=== PATIENT | female | born 1960 | race Caucasian/White ===

== ENCOUNTER → 2023-12-30 07:34 | Outpatient (REF) | payer BC, SELFPAY | LOC: HWRAD 07:34 | PROVIDERS: ATTENDING PHYSICIAN Internal Medicine Critical Care Medicine; FAMILY PHYSICIAN Nurse Practitioner | DX: R91.1 Solitary pulmonary nodule (principal) | CPT/HCPCS: 71250 ==

== ENCOUNTER → 2024-12-23 08:04 | Outpatient (REF) | payer BC, SELFPAY | LOC: HWRAD 08:04 | PROVIDERS: ATTENDING PHYSICIAN Internal Medicine Critical Care Medicine | DX: C34.91 Malignant neoplasm of unspecified part of right bronchus or lung (principal) | CPT/HCPCS: 71250 ==

== ENCOUNTER 2024-12-23 17:04 | Observation (INO) | payer BC, SELFPAY ==
[2024-12-23] VITALS (15 sets, daily range): BP systolic 76–104; BP diastolic 51–79; PULSE 74–76; BMI 28.4; BMI 27.7
[2024-12-23 12:03] LABS: Hematocrit 34.5 % (37.0-47.0); Hemoglobin 12.4 g/dL (12.0-16.0); Mean Corp Hgb Conc. 35.9 g/dL (33.0-37.0); Mean Corpuscular Hgb 30.8 pg (27.0-31.0); Mean Corpuscular Volume 85.8 fL (81.0-99.0); Mean Platelet Volume 10.5 fL (7.4-10.4); Platelet Count 203 10^3/uL (130-400); Red Blood Cell Count 4.02 10^6/uL (4.20-5.40); Red Cell Dist. Width 12.3 % (11.5-14.5); White Blood Cell Count 6.4 10^3/uL (4.8-10.8)
--- NOTE | 2024-12-23 12:06 | ED.GENMED ---
History of Present Illness
General
Chief Complaint: Blood Pressure Problem
Time Seen by Provider: 12/23/24 11:33
History of Present Illness
History of Present Illness:
64-year-old female history of hypertension presenting with dizziness, lethargy for the past 3 weeks. Patient states that she had a left upper tooth infection and had her tooth removed on Thursday 12/21. Patient states that she has been on clindamycin
ever since. Patient states that she is continue to feel pain in that area which has not improved. Patient states that she was feeling so unwell with dizziness that she saw her primary care doctor today and was noted to be hypotensive to 78/50
prompting ED arrival. Patient states that she has a history of hypertension, is on losartan and bisoprolol-HCTZ which she has been compliant with. Patient states that she is on Zepbound is lost 30 pounds since starting in August. Patient denies
chest pain, fever, shortness of breath, cough, abdominal pain or urinary symptoms. Patient notes that she is on clindamycin and noticed an erythematous pruritic rash on her back started few days ago.
Past History
Past History
ED Past Medical History: HTN and Hypothyroidism
ED Past Surgical History: Other (Thyroidectomy)
Social History
Tobacco: Non-smoker
Alcohol: Occasional
Drug: None
Personal:
Living: with family
Employment: Employed
Phy Exam
Physical Exam
Physical Exam:
General: Alert, no acute distress
Head: NCAT
ENT: no ginginval erythema or swelling to left upper gums where tooth removed. no fluctuance or induration
Eyes: clear conjunctiva
Neck: supple
Cardiac: regular rate and rhythm, no murmur
Lungs: clear to auscultation bilaterally. No wheezes, rales, or rhonchi. Speaking full unlabored sentences. No respiratory distress.
Abdomen: soft, nondistended nontender. No rebound or guarding.
MSK: no lower extremity edema bilaterally. No deformity
Skin: warm, dry. Erythematous blanching faint macular rash to mid and low back. No vesicles
Neuro: Alert and oriented x3. no focal deficits
Course
Orders/Labs/Results
Orders:
Orders
12/23/24 Breakfast
Regular
At Your Request: Full Participation
Does patient need a safe tray?: No
Fluid Restriction: 1200 mL/day (40 oz)
12/23/24 11:41
CBC/With Diff [Complete Blood Count/With Diff] Urgent
CMP [Comprehensive Metabolic Panel] Urgent
12/23/24 12:04
CT Facial Bones W/ Iv Contrast Urgent
Comment:
Reason For Exam: r/o abscess left upper molar
CXR2 [CR Chest - 2 Views ] Urgent
Comment:
Reason For Exam: r/o infection
12/23/24 12:05
0.9% Sodium Chloride 1000 ml [Nss] 1,000 ml IV BOLUS
12/23/24 12:11
Lactic Acid Urgent
Blood Culture Q30M
DONNIE Source: Blood/Venous
Specimen Description:
Blood Culture Q30M
DONNIE Source: Blood/Venous
Specimen Description:
12/23/24 14:23
US Abdomen Complete/Upper Urgent
Comment:
Reason For Exam: elevated LFTs, hypotension
12/23/24 14:31
0.9% Sodium Chloride 1000 ml [Nss] 1,000 ml IV BOLUS
12/23/24 16:48
Admit/Transfer Patient As Directed
Co-Sign Provider:
Level of Care: Observation services
Assign to:: Telemetry
Physician / Group: coleen
Diagnosis: hypontension
Reason for Telemetry: Other
Other Reason for Telemetry: hypotension
Date to Stop Telemetry: 12/25/24
Time to Stop Telemetry: 11:00
PRN Pain Medication Management As Directed
May give lesser potent ordered pain med per pt: Yes
preference::
Protocol:: Medication orders for pain may be administered in a
manner that supports deferring to patient preference
when the pt is:
- Requesting an ordered lesser potent pain medication.
Least to most potent pain medications are defined
as: acetaminophen < NSAID < tramadol < opioids
(morphine, oxycodone, hydromorphone).
- Requesting a lesser dose of the same medication IF
ORDERED.
- Requesting a less intrusive route of administration
if both routes are prescribed by the provider (PO <
IV).
12/23/24 16:51
Code Status As Directed
Resuscitation Status: Full Code
12/23/24 20:05
UA Reflex to Culture [Urinalysis Reflex To Culture] Urgent
Date Specimen was Collected: 12/23/24
Time Specimen was Collected: 12:20
Urine Osmolality Random [Osmolality, Random Urine] Routine
Date Specimen was Collected: 12/23/24
Time Specimen was Collected: 18:35
Urine Sodium Routine
Date Specimen was Collected: 12/23/24
Time Specimen was Collected: 18:35
12/23/24 20:17
Acetaminophen [Tylenol] 650 mg PO Q4HPRN PRN
Bisacodyl [Dulcolax] 10 mg RECTAL [id number] PRN
Docusate W/Senna [Senokot-S] 1 tablet PO BIDPRN PRN
Enoxaparin Sodium [Lovenox] 40 mg SC QPM
Polyethylene Glycol Powder [Miralax] 17 grams PO DAILYPRN PRN
12/23/24 20:17
Activity As Directed
Activity Level: As Tolerated
Orthostatic Vital Signs As Directed
Orthostatic VS Frequency: Daily
Vital Signs As Directed
Frequency: Per unit guidelines
Pt Eval And Treat Routine
Activity Level: As Tolerated
DX Deep Vein Thrombosis Video Routine
12/23/24 20:25
Budesonide [Pulmicort] 0.25 mg INH R BIDPRN PRN SHORTNESS OF BREATH
12/23/24 20:26
Albuterol Nebs [Ventolin Nebules] 2.5 mg INH R Q6HPRN PRN
12/23/24 22:00
Clindamycin HCl [Cleocin] 150 mg PO QID
12/24/24 06:00
Levothyroxine [Synthroid] 100 mcg PO DAILY @ 0600
12/25/24 11:00
DC Protocol for Telemetry ONCE
Abnormal Lab Results
12/23/24
11:41
RBC 4.02 L 10^6/uL
(4.20-5.40)
Hct 34.5 L %
(37.0-47.0)
MPV 10.5 H fL
(7.4-10.4)
Immature Gran % 0.6 H %
(0-0.5)
Sodium 126 L mmol/L
(135-145)
Chloride 94 L mmol/L
(98-107)
BUN 27 H mg/dl
(7-17)
Glucose 104 H mg/dl
(70-99)
Calcium 8.3 L mg/dl
(8.4-10.2)
AST 42 H U/L
(14-36)
ALT 70 H U/L
(0-35)
Alkaline Phosphatase 206 H U/L
(38-126)
12/23/24 11:41
12/23/24 11:41
Vital Signs
Initial and Last Documented VS:
Initial Vital Signs
Temp Pulse Resp BP Pulse Ox
98.1 F 67 16 94/56 99
12/23/24 10:28 12/23/24 10:28 12/23/24 10:28 12/23/24 10:28 12/23/24 10:28
Last Documented Vital Signs
Temp Pulse Resp BP Pulse Ox
99.0 F 78 16 99/65 97
12/24/24 14:30 12/24/24 14:30 12/24/24 14:30 12/24/24 14:30 12/24/24 14:30
MDM/Problems Addressed
Differential Diagnosis Includes:
Dental abscess, UTI, pneumonia, LENCHO, electrolyte abnormality
MDM/Problems Addressed:
Results reviewed. Significant for hyponatremia to 126. WBC, hemoglobin within normal limits. Elevated LFTs. UA negative for UTI. Chest x-ray clear with no focal filtrate or consolidation. CT facial bones show No suspicious periapical lucencies.
Ordered abdominal ultrasound due to elevated LFTs. Ultrasound shows Increased echogenicity in the liver, compatible with underlying hepatocellular disease, which most commonly relates to fatty infiltration of the liver. Otherwise no
gallbladder/CBD findings.
On reevaluation, blood pressure only improved to 94/56 despite 2 L of fluids. ?hypotension secondary to not needing as many antihypertensives with lifestyle changes/recent weight loss. Discussed with hospitalist for admission
*Critical Care Note
Total Time (30-74mins, 75-104mins- exclusive of procedures): Not Applicable
ED Attending Note
-
Portions of this chart may have been created with voice recognition software.� Occasional wrong word or��sound alike� substitutions may have occurred due to the inherent limitations of voice recognition software.
Discharge Plan
Departure
Patient Disposition: Admit
Date of Disposition: 12/23/24
Time of Disposition: 16:11
Presentation/result/management discussed w/ accepting MD/DO: Hospitalist
Discharge Problem:
Acute hyponatremia, Hypotension
Interventions
Interventions:
*Risk Screen - Suicide Last Done: 12/23/24 10:28
*Neglect/Abuse Screening Last Done: 12/23/24 10:28
*ED COVID-19 Vaccine History Last Done: 12/23/24 18:36
*Nursing Disposition Last Done: 12/23/24 20:09
ED- Cardiac Assessment Last Done: 12/23/24 11:37
ED- Neurological Assessment Last Done: 12/23/24 11:37
ED- Pulmonary Assessment Last Done: 12/23/24 11:37
Discharge Date and Time
Discharge Date/Time: 12/23/24 20:09
[2024-12-23 12:10] LABS: ALT (SGPT) 70 U/L (0-35); AST (SGOT) 42 U/L (14-36); Albumin 3.6 g/dl (3.5-5.0); Alkaline Phosphatase 206 U/L (38-126); Blood Urea Nitrogen 27 mg/dl (7-17); Calcium 8.3 mg/dl (8.4-10.2); Carbon Dioxide 24 mmol/L (22-30); Chloride 94 mmol/L (98-107); Estimated Creatinine Clearance 59 ml/min; Glucose 104 mg/dl (70-99); Potassium 3.7 mmol/L (3.5-5.1); Sodium 126 mmol/L (135-145); Total Bilirubin 0.9 mg/dl (0.2-1.3); Total Protein 6.5 g/dl (6.3-8.2); eGFR > 60.00
[2024-12-23] MEDS: NSS 1000 IV ×2 (12:17→15:28)
[2024-12-23 12:56] LABS: % Basophils 1.1 % (0-2); % Immature Granulocytes 0.6 % (0-0.5); % Lymphocytes 38.3 % (20.5-51.1); % Monocytes 8.5 % (1.7-9.3); % Neutrophils 48.5 % (42.2-75.2); Absolute Basophils 0.1 10^3/uL (0-0.2); Absolute Eosinophils 0.2 10^3/uL (0-0.7); Absolute Lymphocytes 2.5 10^3/uL (1.2-3.4); Absolute Monocytes 0.5 10^3/uL (0.1-0.6); Absolute Neutrophils 3.1 10^3/uL (1.4-6.5); Nucleated Red Blood Cells % 0 %
--- NOTE | 2024-12-23 16:20 | HPS.HSE ---
Family Physician
-
Family Physician: GENEVIEVE Page
Chief Complaint
-
Dizziness
History of Present Illness
64-year-old female history of hypertension, lung cancer, hypothyroidism presenting with dizziness, lethargy for the past 3 weeks. Patient was complaining of frontal headache. Patient stopped taking zepbound 10 days ago thinking headache was a side
effect of zepbound. Patient is on Zepbound since August and she had lost 30lbs along with dietary modification.Patient states that she had a left upper tooth infection and had her tooth was removed on Thursday 12/21. she is on clindamycin since
then. she was having fever on Friday and Friday which resolved since the tooth was remove and on clindamycin. Patient stated more weak and dizzy this week. Denied congestion or cough. Patient denied any chest pain or shortness of breath.
Patient denied any abdominal pain, nausea, vomiting or diarrhea. Patient denied dysuria hematuria. Patient was evaluated at PCP today. She was noted hypotensive. She was asked to stop losartan and and to be evaluated in the ER.
Patient was noted hypotensive on arrival. Patient received normal saline. Blood pressure improving. Admitted for further management.
Medical History
Past Medical History
Past Medical History: Reports Other
Additional Past Medical History:
Hypertension, hypothyroidism, lung cancer
Past Surgical History: Reports Other
Additional Past Surgical History:
Thyroidectomy
Partial lower lobectomy
Social History
Tobacco: Former Smoker
Alcohol: None
Drug: None
Personal:
Living: With Family
Family History
Family History: Not pertinent
Allergies / Home Medications
Allergies reflects when Allergies were last updated in [facility].
Home Medications with original date entered in [facility]
Allergy/Medication List:
Allergies
Allergy/AdvReac Type Severity Reaction Status Date / Time
Penicillins Allergy Unknown Verified 12/23/24 10:30
Home Medications
aspirin 81 mg chewable tablet 81 mg PO DAILYPRN PRN fatigue, muscle aches 12/23/24
bisoprolol 10 mg-hydrochlorothiazide 6.25 mg tablet 1 tab PO DAILY 12/23/24
budesonide 0.5 mg/2 mL suspension for nebulization 0.25 mg inhalation BIDPRN PRN SHORTNESS OF BREATH 12/23/24
clindamycin HCl 150 mg capsule 150 mg PO QID TOOTH INFECTION 12/23/24
ibuprofen 800 mg tablet 800 mg PO TIDPRN PRN TOOTH PAIN 12/23/24
levalbuterol HCl 1.25 mg/0.5 mL solution for nebulization 1.25 mg inhalation BIDPRN PRN SHORTNESS OF BREATH 12/23/24
levothyroxine 100 mcg tablet (Synthroid) 100 mcg PO DAILY 12/23/24
losartan 100 mg tablet 100 mg PO DAILY 12/23/24
tirzepatide (weight loss) 10 mg/0.5 mL subcutaneous pen injector (Zepbound) 10 mg SC SA@0800 12/23/24
Review of Systems
-
Constitutional: Reports Fatigue
EENT: Reports No Symptoms
Respiratory: Reports No Symptoms
Cardiac: Reports No Symptoms
Abdomen/GI: Reports No Symptoms
: Reports No Symptoms
Musculoskeletal: Reports No Symptoms
Skin: Reports No Symptoms
Neurological: Reports Dizzy
Endocrine: Reports No Symptoms
Hematologic/Lymphatic: Reports No Symptoms
Psych: Reports No Symptoms
Physical Exam
Vital Signs
Vital Signs
Temp Pulse Resp BP Pulse Ox
98.1 F 64 16 96/79 92
12/23/24 10:28 12/23/24 16:00 12/23/24 16:00 12/23/24 16:00 12/23/24 15:30
Physical Exam
General: Well Developed, Well Nourished and No Apparent Distress
HEENT: NormoCephalic, Moist mucous membranes and Atraumatic
Respiratory: Clear
Cardiac: S1/S2 and Regular Rhythm; No Murmur or Rub
GI: Soft, Non Tender, Non Distended and Normal Bowel Sounds; No Organomegaly
Rectal: Deferred by Provider
Musculoskeletal: No Clubbing, No Cyanosis and No Edema
Skin: No Rash
Neuro: AO x 3 and Nonfocal/grossly intact
Psych: Calm
Laboratory Results
-
12/23/24 11:41
12/23/24 11:41
Laboratory Results
Lactic Acid 1.0 mmol/L (0.7-2.0) 12/23/24 12:11
Total Bilirubin 0.9 mg/dl (0.2-1.3) 12/23/24 11:41
AST 42 U/L (14-36) H 12/23/24 11:41
ALT 70 U/L (0-35) H 12/23/24 11:41
Alkaline Phosphatase 206 U/L (38-126) H 12/23/24 11:41
Data Reviewed
-
CT Scan: Report Reviewed by me
Ultrasound: Report Reviewed by me
Lab Data: Labs Reviewed by me
Impression/Plan
-
# Dizziness secondary to hypotension probably secondary to weight loss on zepbound
- Patient received normal saline x 2 L
- Blood cultures and UA ordered in ER
- Chest x-ray with no acute disease
- Hold antihypertensive
- Obtain orthostatics
- PT consulted
# History of tooth infection status post tooth extraction
-On clinda
- CT facial with impression of no suspicious periapical lucencies
# Hyponatremic likely hypovolemic
- Fluids restriction
- Continue to monitor BMP
-urine for sodium and osmolality pending.
# Transaminitis likely from fatty liver
-Ultrasound of the abdomen Increased echogenicity in the liver, compatible with underlying hepatocellular disease, which most commonly relates to fatty infiltration of the liver.
-AST 42, ALT 70, ALK 206
-Patient denied any abdominal pain
-Continue to trend LFTs
# History of lung cancer status post right lower lobectomy in 2020
- Nebs from home continued
# Hypothyroidism
- Levothyroxine continued
# DVT prophylaxis
- Lovenox subcu
# CODE STATUS
- Full code
--- NOTE | 2024-12-23 16:51 | W.PN.UPDATE ---
Update Note
Progress Note Update
This is an addendum to H&P written by SIMONIZER Aurora Victor
I saw and examined the patient.
The SIMONIZER's note was reviewed and I agree with the note.
Comment:
Ms. Marcela Dockery is a 64 yo woman with hx essential HTN, hx lung cancer s/p right lower lobe lobectomy, asthma, recental dental infection s/p tooth extraction, obesity s/p initiation of Zepbound with 30 lb weight loss saw PCP for dizziness sent to ER
as blood pressure was found to be low 78/50. She takes Losartan and Bisoprolol-HCTZ daily for hx HTN.
Triage VS: T 98.1, P 67, RR 16, BP 94/56, SpO2 99%
On exam patient is awake, alert, in no distress. CV: S1, S2, RRR; chest clear; abdomen benign, no LE swelling.
LABS: WBC 6.4, Hg 12.4, PLT 203, Na 126, K+ 3.7, Cl 94, BUN 27, Cr 1.0, Glucose 104, T. Bili 0.9, AST 42, ALT 70, Alk Phos 206, lactate 1.0
CXR
IMPRESSION:
No acute cardiopulmonary process.
Facial Bones CT
IMPRESSION:
1. No suspicious periapical lucencies.
Abdominal US
IMPRESSION:
1. Increased echogenicity in the liver, compatible with underlying hepatocellular disease, which most commonly relates to fatty infiltration of the liver.
Hypotension
-no e/o sepsis/infection; currently on Clinda for prior tooth infection. Etiology of hypotension likely continued use anti-HTN medications in setting of significant weight loss on Zepbound.
-s/p 2L IVF in ER with improvement in BP
-hold B[employer] Bisoprolol-HCTZ and Losartan
-consider resuming beta-antwon based on blood pressures over next couple of days
Hyponatremia
-hold B[employer] HCTZ and stop on DC
-s/p 2L in ER for low blood pressure, will now fluid restrict
-follow up urine studies
Transaminitis
-abdominal US with e/o fatty liver, will trend tomorrow
Remainder of plan as per SIMONIZER note
FULL CODE
[2024-12-23 20:27] LABS: Urine Albumin Negative (Neg - Trace); Urine Bilirubin Negative (Negative); Urine Character Clear (Clear); Urine Color Yellow; Urine Glucose Negative (Negative); Urine Ketone Negative (Negative); Urine Leukocyte Negative (Negative); Urine Nitrite Negative (Negative); Urine Occult Blood Negative (Negative); Urine Urobilinogen Negative (Neg - 1+)
[2024-12-23 20:40] LABS: Osmolality Urine 257 mOsm/kg (300-900)
[2024-12-23 20:46] LABS: Urine Sodium 29 mmol/L (30-90)
[2024-12-23] MEDS: CLEOCIN 150 MG PO (21:19)
[2024-12-23] MEDS: MOTRIN 400 MG PO (21:53)
[2024-12-24] VITALS (8 sets, daily range): BP systolic 72–110; BP diastolic 40–69; PULSE 61–97
[2024-12-24] MEDS: NSS 250 IV (04:05)
--- NOTE | 2024-12-24 04:35 | W.PN.UPDATE ---
Update Note
Progress Note Update
RN reported BP 72/40 HR 70 manually. NSS 500 CC bolus once. Patient seen and evaluated, Ox3, able to make needs known. asymptomatic. Voiced concerns regarding low BP, possible differential explained. voiding okay, last BM wnl, no blood or in stool
noted.
one hour later BP 82/44 HR 66, will order Midodrine. Fall precautions.
laying 110/55, hr 66, sitting 87/56 hr 97, standing 84/55 hr 97
labs in AM
[2024-12-24] MEDS: ProAmatine 10 MG PO (04:38)
[2024-12-24] MEDS: SYNTHROID 100 MCG PO (04:39)
[2024-12-24 05:04] LABS: Hematocrit 28.6 % (37.0-47.0); Hemoglobin 10.5 g/dL (12.0-16.0); Mean Corp Hgb Conc. 36.7 g/dL (33.0-37.0); Mean Corpuscular Hgb 31.3 pg (27.0-31.0); Mean Corpuscular Volume 85.4 fL (81.0-99.0); Mean Platelet Volume 10.2 fL (7.4-10.4); Platelet Count 187 10^3/uL (130-400); Red Blood Cell Count 3.35 10^6/uL (4.20-5.40); Red Cell Dist. Width 12.3 % (11.5-14.5); White Blood Cell Count 4.6 10^3/uL (4.8-10.8)
[2024-12-24 05:42] LABS: ALT (SGPT) 52 U/L (0-35); AST (SGOT) 32 U/L (14-36); Albumin 2.8 g/dl (3.5-5.0); Alkaline Phosphatase 161 U/L (38-126); Blood Urea Nitrogen 15 mg/dl (7-17); Calcium 7.9 mg/dl (8.4-10.2); Carbon Dioxide 24 mmol/L (22-30); Chloride 104 mmol/L (98-107); Estimated Creatinine Clearance 84 ml/min; Glucose 81 mg/dl (70-99); Potassium 3.4 mmol/L (3.5-5.1); Sodium 131 mmol/L (135-145); Total Bilirubin 0.8 mg/dl (0.2-1.3); Total Protein 5.4 g/dl (6.3-8.2); eGFR > 60.00
--- NOTE | 2024-12-24 08:27 | W.PN.HOSP.TC ---
Today's Communication/Plan
-
Dc home
Assessment / Plan
Assessment / Plan
Impression:
Patient is a pleasant 64 yo female with past medical history known for essential HTN, hx lung cancer s/p right lower lobe lobectomy, asthma, recentl dental infection s/p tooth extraction, obesity s/p initiation of Zepbound with 30 lb weight loss saw
PCP for dizziness sent to ER as blood pressure was found to be low 78/50. blood pressure meds on hold.
Morning and plan to discharge home today, advised to blood pressure medication until seen by family doctor.
Advised to check blood pressure twice daily before PCP visit within 1 week
Assessment/plan:
# Dizziness secondary to hypotension probably secondary to weight loss on zepbound
- Patient received normal saline x 2 L
- Blood cultures and UA ordered in ER
- Chest x-ray with no acute disease
- Hold antihypertensive
- Obtain orthostatics
- PT consulted
12/24
plan to discharge home today, advised to blood pressure medication until seen by family doctor.
Advised to check blood pressure twice daily before PCP visit within 1 week
# History of tooth infection status post tooth extraction
-On clinda
- CT facial with impression of no suspicious periapical lucencies
# Hyponatremic likely hypovolemic
- Fluids restriction
- Continue to monitor BMP
-urine for sodium and osmolality pending.
# Transaminitis likely from fatty liver
-Ultrasound of the abdomen Increased echogenicity in the liver, compatible with underlying hepatocellular disease, which most commonly relates to fatty infiltration of the liver.
-AST 42, ALT 70, ALK 206
-Patient denied any abdominal pain
-Continue to trend LFTs
# History of lung cancer status post right lower lobectomy in 2020
- Nebs from home continued
# Hypothyroidism
- Levothyroxine continued
CODE STATUS: Full code
DVT prophylaxis: Lovenox
Diet: Regular diet
Family communication: Present with at bedside
Disposition: Discharge home today
Total time spent on today's encounter was 65 minutes which included time spent in counseling the patient/family regarding diagnosis and treatment plan as listed above, goals of care, and symptom management. Case was discussed with nursing staff,
specialists, and care coordinators/case management. All labs and imaging personally reviewed by me. Remainder the time spent in detailed review of previous records, lab data, imaging, and other medical provider documentation.
Anticipated Discharge: Today
Subjective/Interval History
-
Date of Service: December 24, 2024
Patient seen and examined at bedside, denies any chest pain or shortness of breath, no abdominal pain, no nausea, no vomiting, no diarrhea or constipation.
Objective Data
-
Labs:
Laboratory Results
12/24/24
04:55
WBC 4.6 L
Hgb 10.5 L
Hct 28.6 L
Plt Count 187
Sodium 131 L
Potassium 3.4 L
Chloride 104
Carbon Dioxide 24
BUN 15
Creatinine 0.7
Glucose 81
Calcium 7.9 L
Total Bilirubin 0.8
AST 32
ALT 52 H
Alkaline Phosphatase 161 H
Vital Signs:
Vital Signs
Temp Pulse Resp BP Pulse Ox
97.7 F 63 16 91/51 98
12/24/24 07:20 12/24/24 07:20 12/24/24 07:20 12/24/24 07:20 12/24/24 07:20
I&O
12/23/24 12/24/24 12/25/24
06:59 06:59 06:59
Intake Total 240 / 240
Balance 240 / 240
Physical Exam
-
General: Well Developed, Well Nourished, No Apparent Distress and Comfortable
HEENT: Normocephalic, Atraumatic, Moist Mucous Membranes, No Ptosis, PERRLA and Nose Appears Normal
Respiratory: Clear to Auscultation and Non Labored Respirations
Cardiac: Regular Rhythm and S1/S2
Breast: Deferred by me
GI: Soft, Nontender, Nondistended and Normal Bowel Sounds
Genito-urinary: No Costovertebral Tender
Musculoskeletal: No Clubbing, No Cyanosis and No Edema
Skin: Warm
Neuro: Awake, Alert, Oriented, AO x 3 and No Motor Deficits
Psych: Calm
Data Reviewed
-
Diagnostic Radiology: Image personally visualized and interpreted and Report Reviewed by me
CT Scan: Image personally visualized and interpreted and Report Reviewed by me
Ultrasound: Image personally visualized and interpreted and Report Reviewed by me
MRI: Image personally visualized and interpreted and Report Reviewed by me
Medical Tests (Nuc Med, Echo etc): Image personally visualized and interpreted and Report Reviewed by me
Labs: Labs Reviewed by me
Old Records: Reviewed
[2024-12-24] MEDS: CLEOCIN 150 MG PO ×2 (08:53→13:47)
--- NOTE | 2024-12-24 09:45 | W.DCSUMMARY ---
Discharge Summary
Discharge Data
Date of Admission: 12/23/24
Date of Discharge: 12/24/24
-
Pending Results: No
Hospital Course
Hospital course
Patient is a pleasant 64 yo female with past medical history known for essential HTN, hx lung cancer s/p right lower lobe lobectomy, asthma, recentl dental infection s/p tooth extraction, obesity s/p initiation of Zepbound with 30 lb weight loss saw
PCP for dizziness sent to ER as blood pressure was found to be low 78/50. blood pressure meds on hold.
Morning and plan to discharge home today, advised to blood pressure medication until seen by family doctor.
Advised to check blood pressure twice daily before PCP visit within 1 week
During hospitalization patient was treated from the following
# Dizziness secondary to hypotension probably secondary to weight loss on zepbound
- Patient received normal saline x 2 L
- Blood cultures and UA ordered in ER
- Chest x-ray with no acute disease
- Hold antihypertensive
- Obtain orthostatics
- PT consulted
12/24
plan to discharge home today, advised to blood pressure medication until seen by family doctor.
Advised to check blood pressure twice daily before PCP visit within 1 week
# History of tooth infection status post tooth extraction
-On clinda
- CT facial with impression of no suspicious periapical lucencies
# Hyponatremic likely hypovolemic
- Fluids restriction
- Continue to monitor BMP
-urine for sodium and osmolality pending.
# Transaminitis likely from fatty liver
-Ultrasound of the abdomen Increased echogenicity in the liver, compatible with underlying hepatocellular disease, which most commonly relates to fatty infiltration of the liver.
-AST 42, ALT 70, ALK 206
-Patient denied any abdominal pain
-Continue to trend LFTs
# History of lung cancer status post right lower lobectomy in 2020
- Nebs from home continued
# Hypothyroidism
- Levothyroxine continued
CODE STATUS: Full code
DVT prophylaxis: Lovenox
Diet: Regular diet
Family communication: Present with at bedside
Disposition: Discharge home today
Total time spent on today's encounter was 40 minutes which included time spent in counseling the patient/family regarding diagnosis and treatment plan as listed above, goals of care, and symptom management. Case was discussed with nursing staff,
specialists, and care coordinators/case management. All labs and imaging personally reviewed by me. Remainder the time spent in detailed review of previous records, lab data, imaging, and other medical provider documentation.
Anticipated Discharge: Today
Discharge Plan
-
Patient Disposition: Home (Routine Discharge)
Discharge Diagnosis/Procedures: Hypotension
Hypothyroidism
Diet: As tolerated
Activity: As tolerated
Referrals:
Boris Deng CRNP [Family Provider]
Additional Discharge Medication Instructions: Hold BP medications, please check BP twice daily and follow with PCP in 1 week.
Prescriptions:
Continued
ibuprofen 800 mg tablet
800 mg PO TIDPRN PRN (Reason: TOOTH PAIN)
clindamycin HCl 150 mg capsule
150 mg PO QID
levothyroxine [Synthroid] 100 mcg Tablet
100 mcg PO DAILY
budesonide 0.5 mg/2 mL Suspension For Nebulization
0.25 mg INHALATION BIDPRN PRN (Reason: SHORTNESS OF BREATH)
aspirin 81 mg Tablet,Chewable
81 mg PO DAILYPRN PRN (Reason: fatigue, muscle aches)
levalbuterol HCl 1.25 mg/0.5 mL Solution For Nebulization
1.25 mg INHALATION BIDPRN PRN (Reason: SHORTNESS OF BREATH)
Zepbound 10 mg/0.5 mL pen injector
10 mg SC SA@0800
Held
bisoprolol-hydrochlorothiazide 10-6.25 mg tablet
1 tab PO DAILY
Hold Instructions: until seen by PCP
losartan 100 mg tablet
100 mg PO DAILY
Hold Instructions: until seen by PCP
Discharge Orders:
Discharge Patient (As Directed); Ordered 12/24/24
Ordered By: Stuart Queen
Discharge Date and Time
Discharge Date/Time: 12/24/24 15:20
Print Language: DANISH
--- NOTE | 2024-12-24 13:16 | CM ---
Alert awake oriented patient who lives with Sridhar in a 2 story home with 1 step to enter and 4 steps to bed/bath room.She is independent in all ADLs and she drives.
Observation letter reviewed with pt . Copy given . Pt signed observation letter its on chart.
No DME
No VN /SNF hx
Ph[facility]acy [facility]
PCP Dr Deng
[facility] Home no needs
[2024-12-24] MEDS: KCL 20 MEQ PO (13:46)
== END 2024-12-24 15:20 | disposition home or self-care (01) ==
LOC: 4 EAST ACU 17:04
PROVIDERS: Nurse Practitioner Gerontology; Registered Nurse; ADMITTING PHYSICIAN Student in an Organized Health Care Education/Training Program; ATTENDING PHYSICIAN General Practice; EMERGENCY PHYSICIAN Emergency Medicine
DX: I95.9 Hypotension, unspecified (principal); I10 Essential (primary) hypertension; R42 Dizziness and giddiness; E87.1 Hypo-osmolality and hyponatremia; R79.89 Other specified abnormal findings of blood chemistry; E89.0 Postprocedural hypothyroidism; K76.0 Fatty (change of) liver, not elsewhere classified; K04.7 Periapical abscess without sinus; J45.909 Unspecified asthma, uncomplicated; E66.9 Obesity, unspecified; R63.4 Abnormal weight loss; R51.9 Headache, unspecified; Z90.89 Acquired absence of other organs; Z87.891 Personal history of nicotine dependence; Z88.0 Allergy status to penicillin; Z79.899 Other long term (current) drug therapy; Z79.82 Long term (current) use of aspirin; Z79.51 Long term (current) use of inhaled steroids; Z79.890 Hormone replacement therapy; Z85.118 Personal history of other malignant neoplasm of bronchus and lung; Z68.27 Body mass index [BMI] 27.0-27.9, adult; Z79.85 Long-term (current) use of injectable non-insulin antidiabetic drugs; Z90.2 Acquired absence of lung [part of]
CPT/HCPCS: 70487; 71046; 76700; 80053; 81003; 82248; 83605; 83935; 84300; 85025; 85027; 87040; 96360; 96361; 97161; 99285; G0378; Q9967